=== PATIENT | female | born 1940 | race Caucasian/White ===

== ENCOUNTER 2016-06-09 13:43 | Outpatient (RCR) | payer MEDICARE, MEDICAID ==
[2015-05-24 12:27] VITALS: BP 168/78
[~2016-06-09 13:43] MED LIST: ADVAIR DISKUS1 DS1 IH; ALIVE WOMEN'S1 EACH PO; ASPIR LOW81 MG PO; CALCIUM500 M1 PO; CELEBREX PO; HTN MED; HYGROTON 2525 MG/TAB PO; LISINOPRIL5 MG PO; LOSARTAN POTASS50 MG PO; PHARMASSURE FIS1 SGL PO
[2016-06-22] MEDS ORDERED: FISH OIL 1,001000 MG PO (05:24)
[2016-06-22] MEDS ORDERED: MULTIVITAMIN1 SGL PO (05:24)
[2016-06-22] MEDS ORDERED: ALEVE220 M1 PO (05:25)
[2016-06-22] MEDS ORDERED: PRAVACHOL 20MG20 MG PO (05:25)
[2016-06-22] MEDS ORDERED: RT ADVAIR HFA 1112 G IH (05:25)
[2016-06-22] MEDS ORDERED: COZAAR25 M1 PO (05:26)
[2016-06-22] MEDS ORDERED: PRILOSEC 20MG20 MG PO (05:26)
[2016-06-22] MEDS ORDERED: ANTIVERT12.5 M1 PO (08:25)
[2016-06-22] MEDS ORDERED: FLONASE ALLERG9.9 ML NS (08:25)
[2016-06-22] MEDS ORDERED: VALIUM 2MG T2 MG/TAB PO (08:25)
== END 2016-06-30 10:34 | disposition home or self-care (01) ==
LOC: PT 13:43
DX: M76.32 Iliotibial band syndrome, left leg (principal)

== ENCOUNTER 2016-06-22 03:51 | Emergency (ER) | payer MEDICARE, MEDICAID ==
[2016-06-22] MEDS ORDERED: FISH OIL 1,001000 MG PO (05:24)
[2016-06-22] MEDS ORDERED: MULTIVITAMIN1 SGL PO (05:24)
[2016-06-22] MEDS ORDERED: PRAVACHOL 20MG20 MG PO (05:25)
[2016-06-22] MEDS ORDERED: RT ADVAIR HFA 1112 G IH (05:25)
[2016-06-22] MEDS ORDERED: ALEVE220 M1 PO (05:25)
[2016-06-22] MEDS ORDERED: PRILOSEC 20MG20 MG PO (05:26)
[2016-06-22] MEDS ORDERED: COZAAR25 M1 PO (05:26)
[2016-06-22] MEDS ORDERED: VALIUM 2MG T2 MG/TAB PO (08:25)
[2016-06-22] MEDS ORDERED: ANTIVERT12.5 M1 PO (08:25)
[2016-06-22] MEDS ORDERED: FLONASE ALLERG9.9 ML NS (08:25)
[2016-06-22 09:04] VITALS: BP 165/78
== END 2016-06-22 08:57 | disposition home or self-care (01) ==
LOC: ED 03:51
DX: R42 Dizziness and giddiness (principal); H92.03 Otalgia, bilateral; J30.2 Other seasonal allergic rhinitis
CPT/HCPCS: J2550; J7030

== ENCOUNTER → 2016-07-22 | Outpatient (CLI) | payer MEDICARE, MEDICAID ==
[2016-06-22 09:04] VITALS: BP 165/78
[~2016-07-22] MED LIST changes: +ALEVE220 M1 PO; +ANTIVERT12.5 M1 PO; +COZAAR25 M1 PO; +FISH OIL 1,001000 MG PO; +FLONASE ALLERG9.9 ML NS; +MULTIVITAMIN1 SGL PO; +PRAVACHOL 20MG20 MG PO; +PRILOSEC 20MG20 MG PO; +RT ADVAIR HFA 1112 G IH; +VALIUM 2MG T2 MG/TAB PO
== END ==
LOC: RAD 09:17
DX: E04.2 Nontoxic multinodular goiter (principal)

== ENCOUNTER → 2016-09-30 | Outpatient (CLI) | payer MEDICARE, MEDICAID | LOC: RAD 15:55 | DX: I50.1 Left ventricular failure, unspecified (principal); R06.00 Dyspnea, unspecified; I35.0 Nonrheumatic aortic (valve) stenosis; I35.1 Nonrheumatic aortic (valve) insufficiency; I07.1 Rheumatic tricuspid insufficiency ==

== ENCOUNTER → 2016-10-19 | Outpatient (CLI) | payer MEDICARE, MEDICAID | LOC: RAD 12:50 | DX: I65.23 Occlusion and stenosis of bilateral carotid arteries (principal) ==

== ENCOUNTER → 2016-11-04 | Outpatient (CLI) | payer MEDICARE, MEDICAID | LOC: MAMMO 09:14 | DX: Z12.31 Encounter for screening mammogram for malignant neoplasm of breast (principal) | CPT/HCPCS: G0202 ==

== ENCOUNTER → 2017-09-28 | Outpatient (CLI) | payer MEDICARE, MEDICAID | LOC: RAD 08:34 | DX: Z09 Encounter for follow-up examination after completed treatment for conditions other than malignant neoplasm (principal); Z96.642 Presence of left artificial hip joint; Z87.39 Personal history of other diseases of the musculoskeletal system and connective tissue ==

== ENCOUNTER → 2017-10-13 | Outpatient (CLI) | payer MEDICARE, MEDICAID | LOC: RAD 09:57 | DX: I65.21 Occlusion and stenosis of right carotid artery (principal) | CPT/HCPCS: Q9967 ==

== ENCOUNTER → 2017-11-29 | Outpatient (CLI) | payer MEDICARE, MEDICAID | LOC: MAMMO 14:24 | DX: Z12.31 Encounter for screening mammogram for malignant neoplasm of breast (principal) ==

== ENCOUNTER → 2018-05-02 | Day surgery (SDC) | payer MEDICARE, MEDICAID | LOC: MSO 09:27 | DX: K22.2 Esophageal obstruction (principal); K21.9 Gastro-esophageal reflux disease without esophagitis; J45.909 Unspecified asthma, uncomplicated; I73.9 Peripheral vascular disease, unspecified; I10 Essential (primary) hypertension; Z88.5 Allergy status to narcotic agent; Z88.1 Allergy status to other antibiotic agents; Z88.0 Allergy status to penicillin; Z96.642 Presence of left artificial hip joint; Z79.82 Long term (current) use of aspirin | CPT/HCPCS: 00731; C1769; J2704; J7120 ==

== ENCOUNTER → 2018-05-17 | Outpatient (CLI) | payer MEDICARE, MEDICAID | LOC: RAD 13:36 → MAMMO 13:45 → RAD 13:45 | DX: Z13.820 Encounter for screening for osteoporosis (principal); M81.0 Age-related osteoporosis without current pathological fracture ==

== ENCOUNTER 2018-09-12 05:25 | Emergency (ER) | payer MEDICARE, MEDICAID ==
[~2018-09-12] VITALS: Ht 165.1 cm; Wt 62.3 kg
[2018-09-12] MEDS ORDERED: COZAAR100 MG PO (05:43)
[2018-09-12] MEDS ORDERED: NORVASC 5MG5 MG/TAB PO (05:44)
[2018-09-12 06:05] LABS: EOS # 0.2 (0.04-0.40); EOS % 2.9 % (1.0-5.0); HEMATOCRIT 40.5 % (37.0-47.0); HEMOGLOBIN 13.5 g/dL (12.5-16.0); LYMPH# 1.2 (1.50-4.00); MEAN CELL VOLUME 88 fl (78-100); MEAN CORPUSCULAR HEMOGLOBIN 30 pg (27-31); MEAN CORPUSCULAR HGB CONC 33 g/dL (33-37); MEAN PLATELET VOLUME 8.9 fl (7.4-10.4); MONO # 0.5 (0.20-0.80); NEU # 4.1 (1.40-6.50); PLATELET COUNT 217 K/mm3 (130-400); RED BLOOD COUNT 4.58 M/mm3 (4.10-5.30); RED CELL DISTRIBUTION WIDTH 13.7 % (11.5-14.5); WHITE BLOOD COUNT 5.9 K/mm3 (4.8-10.8)
[2018-09-12 06:19] LABS: ALBUMIN 4.2 g/dL (3.4-4.8)
[2018-09-12 06:21] LABS: CALCIUM 9.7 mg/dL (8.3-10.5)
[2018-09-12 06:24] LABS: TOTAL BILIRUBIN 0.3 mg/dL (0.2-1.2)
[2018-09-12 06:41] LABS: PROTHROMBIN TIME 9.5 SECONDS (9.0-12.0)
[2018-09-12 06:43] LABS: D-DIMER 0.85 mg/L FEU (0.15-0.50)
[2018-09-12 07:25] VITALS: BP 176/79
== END 2018-09-12 07:37 | disposition home or self-care (01) ==
LOC: ED 05:25
PROVIDERS: Nurse Practitioner Family
DX: M79.662 Pain in left lower leg (principal); R79.1 Abnormal coagulation profile; I10 Essential (primary) hypertension; J45.909 Unspecified asthma, uncomplicated; Z86.718 Personal history of other venous thrombosis and embolism; Z98.890 Other specified postprocedural states; Z79.51 Long term (current) use of inhaled steroids
CPT/HCPCS: J1650

== ENCOUNTER → 2018-09-14 | Outpatient (CLI) | payer MEDICARE, MEDICAID ==
[2018-09-12 07:25] VITALS: BP 176/79
[~2018-09-14] MED LIST changes: +COZAAR100 MG PO; +NORVASC 5MG5 MG/TAB PO
== END ==
LOC: VAS 10:58 → RAD 11:00
DX: M79.89 Other specified soft tissue disorders (principal)

== ENCOUNTER → 2018-11-04 | Outpatient (CLI) | payer MEDICARE, MEDICAID | LOC: LAB 11:38 | DX: W57.XXXA Bitten or stung by nonvenomous insect and other nonvenomous arthropods, initial encounter (principal) ==

== ENCOUNTER → 2018-11-28 | Outpatient (CLI) | payer MEDICARE, MEDICAID | LOC: MAMMO 12:52 | DX: Z12.31 Encounter for screening mammogram for malignant neoplasm of breast (principal) ==

== ENCOUNTER → 2020-06-06 | Outpatient (CLI) | payer MEDICARE, MEDICAID | LOC: VAS 10:56 → RAD 11:00 | DX: I35.0 Nonrheumatic aortic (valve) stenosis (principal) ==

== ENCOUNTER → 2020-12-30 | Outpatient (CLI) | payer MEDICARE, MEDICAID | LOC: RAD 15:03 → MAMMO 15:15 | DX: M81.0 Age-related osteoporosis without current pathological fracture (principal) ==

== ENCOUNTER → 2021-11-30 | Outpatient (CLI) | payer MEDICARE, MEDICAID | LOC: RAD 11-02 15:30 | DX: I65.23 Occlusion and stenosis of bilateral carotid arteries (principal); I10 Essential (primary) hypertension; E78.49 Other hyperlipidemia ==

== ENCOUNTER 2023-04-25 16:48 | Inpatient (IN) | payer MEDICARE, MEDICAID ==
[~2023-04-25] VITALS: Ht 157.5 cm; Wt 65.0 kg
[2023-04-25 18:00] VITALS: BP 153/81
[2023-04-25 18:29] VITALS: BP 172/62
[2023-04-25] MEDS ORDERED: Naloxone 0.4 MG/ML VIAL IV PRN (18:45)
[2023-04-25] MEDS ORDERED: Acetaminophen 325 MG TAB PO PRN (18:45)
[2023-04-25] MEDS ORDERED: Polyethylene Glycol 3350 Powder 17 GM PACKET PO PRN (18:45)
[2023-04-25] MEDS ORDERED: Acetaminophen 500 MG TAB PO PRN (19:00)
[2023-04-25] MEDS ORDERED: oxyCODONE 5 MG TAB PO PRN (19:00)
[2023-04-25] MEDS ORDERED: Docusate Sodium 100 MG CAP PO SCH (21:00)
[2023-04-25] MEDS ORDERED: Calcium Carbonate Chewable 500 MG TAB PO PRN (21:15)
[2023-04-25 22:24] VITALS: BP 168/80
[2023-04-25 23:07] LABS: URINE APPEARANCE SLIGHTLY CLOUDY (CLEAR); URINE COLOR YELLOW (YELLOW); URINE GLUCOSE NEGATIVE (NEGATIVE); URINE PROTEIN(semi-quant) NEGATIVE (NEGATIVE)
[2023-04-25 23:08] LABS: URINE BILIRUBIN NEGATIVE (NEGATIVE); URINE BLOOD TRACE-INTACT (NEGATIVE); URINE KETONE TRACE (NEGATIVE); URINE LEUKOCYTE ESTERASE 2+ (NEGATIVE); URINE NITRATE POSITIVE (NEGATIVE); URINE WBC 31-50 /hpf (0-3)
[2023-04-26] MEDS ORDERED: Nitrofurantoin (Mono/Macro) 100 MG CAPSULE PO SCH
[2023-04-26 02:04] VITALS: BP 170/76
[2023-04-26 06:08] VITALS: BP 145/76
[2023-04-26] MEDS ORDERED: Influenza Virus Vaccine, Hi-Dose Quad '23-24 (65 YR+) 0.7 ML SYRINGE IM SCH (09:00)
[2023-04-26] MEDS ORDERED: Losartan 50 MG TAB PO SCH (09:00)
[2023-04-26 10:10] VITALS: BP 170/72
[2023-04-26 14:10] VITALS: BP 128/60
[2023-04-26 18:09] VITALS: BP 173/73
[2023-04-26 22:23] VITALS: BP 157/70
[2023-04-27 02:34] VITALS: BP 158/76
[2023-04-27 06:18] VITALS: BP 134/72
[2023-04-27 10:10] VITALS: BP 159/71
[2023-04-27 14:15] VITALS: BP 145/76; BP_SYST 110
[2023-04-27 17:15] VITALS: BP 161/71
[2023-04-27] MEDS ORDERED: Furosemide 40 MG TAB PO SCH (18:56)
[2023-04-27 22:37] VITALS: BP 169/80
[2023-04-28 01:44] VITALS: BP 156/84
[2023-04-28 06:07] VITALS: BP 120/70
[2023-04-28 10:10] VITALS: BP 121/80
[2023-04-28] MEDS ORDERED: MACROBID 100 M100 MG PO (12:47)
[2023-04-28 14:20] VITALS: BP 137/81
== END 2023-04-28 16:13 | disposition swing bed (61) | DRG 536 ==
LOC: MED/SURG 16:48
PROVIDERS: ADMIT Nurse Practitioner
DX: S32.592A Other specified fracture of left pubis, initial encounter for closed fracture (principal); N39.0 Urinary tract infection, site not specified; I10 Essential (primary) hypertension; R53.81 Other malaise; W18.30XA Fall on same level, unspecified, initial encounter; Y92.009 Unspecified place in unspecified non-institutional (private) residence as the place of occurrence of the external cause; Z91.81 History of falling; Z90.49 Acquired absence of other specified parts of digestive tract; Z88.0 Allergy status to penicillin; Z88.5 Allergy status to narcotic agent; Z88.8 Allergy status to other drugs, medicaments and biological substances
CPT/HCPCS: J1650